=== PATIENT | male | born 1995 | race American Indian/Alaskan Native ===

== ENCOUNTER 2018-10-27 11:31 | Emergency (ER) | payer SELFPAY ==
[2018-10-27 12:03] VITALS: BP 132/75
--- NOTE | 2018-10-27 12:10 | Emergency Department Report ---
Chief Complaint: Skin Rash Stated Complaint: RASH ON CORNER LIPS/WATER BLISTERS Time Seen by Provider: 10/27/18 12:00 - HPI History of Present Illness: 22 y/o male comes for blister on the corner or left corner of lip for 5 days No fevers has been using blisitex on lip. - ROS Review of Systems: blister on lip. - Exam Vital Signs: Vital Signs 10/27/18 12:00 Temperature 98.3 F Pulse Rate 61 Respiratory 18 Rate Blood Pressure 132/75 O2 Sat by Pulse 100 Oximetry Physical Exam: blister or left corner on lip. MSE screening note: Focused history and physical exam performed. Due to findings the following was ordered: Patient referred to outpatient clinic. Patient symptom requires on further ER evaluation. Patient is not at risk for loss or limb or . ED Disposition for MSE Disposition: Z- MED SCREENING EXAM-LEFT Condition: Stable
== END 2018-10-27 12:06 | disposition left against medical advice (07) ==
LOC: ED 11:31
DX: S00.521A Blister (nonthermal) of lip, initial encounter (principal); X98.8XXA Assault by other hot objects, initial encounter; Y93.89 Activity, other specified; Y92.89 Other specified places as the place of occurrence of the external cause; Y99.8 Other external cause status
CPT/HCPCS: 99281